=== PATIENT | male | born 1980 | race Caucasian/White ===

== ENCOUNTER 2021-12-02 08:38 | Outpatient (CLI) | payer BC, SELFPAY ==
[2021-12-02 14:17] LABS: Albumin* 4.7 g/dL (3.3-5.0); Chloride* 99 mmol/L (96-114)
[2021-12-02 14:18] LABS: Potassium* 5.2 mmol/L (3.6-5.1)
[2021-12-02 14:19] LABS: Cholesterol* 157 mg/dL (90-199)
[2021-12-02 14:20] LABS: Alanine Aminotransferase* 59 U/L (4-50); Alkaline Phosphatase* 70 U/L (40-150); Aspartate Amino Transferase* 36 U/L (12-35); Bilirubin Total* 1.5 mg/dL (0.1-1.5); Blood Urea Nitrogen* 20 mg/dL (5-24); Calcium* 9.4 mg/dL (8.4-10.6); Carbon Dioxide* 32 mmol/L (20-32); Creatinine* 1.1 mg/dL (0.5-1.5); Estimated Glomerular Filt Rate 85 ml/min; Glucose* 99 mg/dL (60-115); Total Protein* 7.3 g/dL (6.0-8.3); Triglycerides* 164 mg/dL (40-149)
[2021-12-02 14:21] LABS: HDL Cholesterol* 41 mg/dL (>=40); LDL Cholesterol Calculated 83 mg/dL (<100)
[2021-12-02 14:45] LABS: Sodium* 138 mmol/L (135-149)
== END 2021-12-02 08:39 | disposition home or self-care (01) ==
PROVIDERS: PCP Physician Assistant Medical; Visit Provider Physician Assistant Medical
DX: E78.5 Hyperlipidemia, unspecified (principal); I10 Essential (primary) hypertension; I63.9 Cerebral infarction, unspecified
CPT/HCPCS: 80053; 80061; 84443

== ENCOUNTER 2022-01-08 10:35 | Outpatient (CLI) | payer BC, SELFPAY ==
[2022-01-08 10:53] LABS: Basophils Absolute Auto 0.04 K/uL (0.00-0.30); Basophils Percent Auto 0.6 % (0.0-3.0); Eosinophils Absolute Auto 0.16 K/uL (0.00-0.50); Eosinophils Percent Auto 2.2 % (0.0-7.0); Hematocrit 45.4 % (37.0-53.0); Hemoglobin* 14.8 gm/dL (13.5-17.5); Lymphocytes Absolute Auto 2.74 K/uL (0.90-2.90); Mean Corpuscular HGB Conc 33 gm/dL (32-36); Mean Corpuscular Hemoglobin 30 pg (26-34); Mean Corpuscular Volume 90 fL (80-100); Monocytes Percent Auto 12.7 % (0.0-11.0); Neutrophils Absolute Auto 3.36 K/uL (1.7-7.0); Neutrophils Percent Auto 46.5 % (42.0-72.0); Platelet Count* 269 K/uL (140-440); Red Blood Count 5.02 m/uL (4.30-5.90); White Blood Count* 7.22 K/uL (4.50-11.00)
[2022-01-08 10:55] LABS: Slide Review Reflex No
[2022-01-08 13:57] LABS: Albumin* 4.9 g/dL (3.3-5.0)
[2022-01-08 13:58] LABS: Chloride* 98 mmol/L (96-114); Potassium* 4.4 mmol/L (3.6-5.1); Sodium* 137 mmol/L (135-149)
[2022-01-08 14:00] LABS: Bilirubin Total* 1.5 mg/dL (0.1-1.5); Carbon Dioxide* 30 mmol/L (20-32); Creatinine* 0.9 mg/dL (0.5-1.5); Estimated Glomerular Filt Rate 109 ml/min
[2022-01-08 14:01] LABS: Alanine Aminotransferase* 49 U/L (4-50); Alkaline Phosphatase* 66 U/L (40-150); Aspartate Amino Transferase* 29 U/L (12-35); Blood Urea Nitrogen* 16 mg/dL (5-24); Calcium* 9.8 mg/dL (8.4-10.6); Glucose* 111 mg/dL (60-115); Total Protein* 7.6 g/dL (6.0-8.3)
== END 2022-01-08 10:36 | disposition home or self-care (01) ==
PROVIDERS: PCP Physician Assistant Medical; Visit Provider Physician Assistant Medical
DX: R10.9 Unspecified abdominal pain (principal); I10 Essential (primary) hypertension; E78.5 Hyperlipidemia, unspecified
CPT/HCPCS: 80053; 85025

== ENCOUNTER 2022-01-16 15:48 | Outpatient (CLI) | payer BC, SELFPAY ==
--- NOTE | 2022-01-16 16:00 | CRLHL7_ITS ---
For Patients: As a result of the Century Cures Act, medical imaging exams and procedure reports are released immediately into your electronic medical record. You may view this report before your referring provider. If you have questions, please contact your health care provider. Indication: RLQ PAIN Technique: Postcontrast CT abdomen and pelvis. 117 cc Isovue 370 intravenous contrast. Please note that all CT scans at this facility use dose modulation, iterative reconstruction, and/or weight-based dosing when appropriate to reduce radiation dose to as low as reasonably achievable. Comparison: None Findings: Lung bases are clear. Normal liver. Gallbladder normal. Normal pancreas, spleen, adrenal glands, kidneys and ureters. No bowel obstruction, free air, free fluid or adenopathy. Mild vascular calcifications within the distal aorta and common iliac arteries. No aneurysm. Normal prostate and bladder. No pelvic soft tissue mass. No bowel obstruction, free air, free fluid or abscess. Normal appendix. Normal appearance of the terminal ileum without evidence of inflammatory bowel disease. Mild fecalization of the small bowel noted. Degenerative disc disease lower lumbar spine. No fracture. Impression: No acute inflammatory changes. Normal appendix. 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 No mechanical obstruction. Please note that all CT scans at this facility use dose modulation, iterative reconstruction, and/or weight-based dosing when appropriate to reduce radiation dose to as low as reasonably achievable. Dictated by Cali Knight MD @ 01/19/2022 9:10:43 AM (Electronically Signed)
== END 2022-01-16 15:49 | disposition home or self-care (01) ==
LOC: CT 15:49
PROVIDERS: PCP Physician Assistant Medical; Visit Provider Physician Assistant Medical
DX: R10.31 Right lower quadrant pain (principal)
CPT/HCPCS: 74177; Q9967

== ENCOUNTER 2022-07-13 13:08 | Outpatient (CLI) | payer BC, SELFPAY | END 2022-07-13 13:09 | disposition home or self-care (01) | LOC: NFLDREF 07-15 11:45 | PROVIDERS: PCP Physician Assistant Medical; Referring Provider Physician Assistant Medical; Visit Provider Family Medicine | DX: R35.0 Frequency of micturition (principal); R39.9 Unspecified symptoms and signs involving the genitourinary system; R10.2 Pelvic and perineal pain; R39.11 Hesitancy of micturition | CPT/HCPCS: 87086 ==

== ENCOUNTER 2022-12-30 08:46 | Outpatient (CLI) | payer BC, SELFPAY | END 2022-12-30 08:47 | disposition home or self-care (01) | PROVIDERS: PCP Physician Assistant Medical; Visit Provider Physician Assistant Medical | DX: I10 Essential (primary) hypertension (principal); E78.5 Hyperlipidemia, unspecified; I63.9 Cerebral infarction, unspecified | CPT/HCPCS: 80053; 80061 ==

== ENCOUNTER 2024-02-16 07:49 | Outpatient (CLI) | payer OTHER, SELFPAY | END 2024-02-16 07:50 | disposition home or self-care (01) | LOC: NFLDREF 02-19 12:12 | PROVIDERS: PCP Physician Assistant Medical; Referring Provider Physician Assistant Medical; Visit Provider Physician Assistant Medical | DX: Z00.00 Encounter for general adult medical examination without abnormal findings (principal); I10 Essential (primary) hypertension; E78.5 Hyperlipidemia, unspecified; I63.9 Cerebral infarction, unspecified | CPT/HCPCS: 80053; 80061; 84443 ==

== ENCOUNTER 2024-03-27 06:24 | Outpatient (CLI) | payer OTHER, SELFPAY ==
--- NOTE | 2024-03-27 08:11 | W.ANESCHARGE ---
Anesthesia Charges Start Date/Time Anesthesia Start Date: 03/27/24 Anesthesia Start Time: 07:30 Stop Date/Time Anesthesia Stop Date: 03/27/24 Anesthesia Stop Time: 08:05
== END 2024-03-27 06:25 | disposition home or self-care (01) ==
LOC: OP CLINIC 06:25
PROVIDERS: PCP Physician Assistant Medical; Visit Provider Surgery
DX: Z12.11 Encounter for screening for malignant neoplasm of colon (principal); D12.5 Benign neoplasm of sigmoid colon
CPT/HCPCS: 00811; 45385; 88305; J2405; J2704

== ENCOUNTER 2025-02-15 09:27 | Outpatient (CLI) | payer OTHER, SELFPAY | END 2025-02-15 09:28 | disposition home or self-care (01) | LOC: NFLDREF 02-21 01:50 | PROVIDERS: PCP Physician Assistant Medical; Referring Provider Physician Assistant Medical; Visit Provider Physician Assistant Medical | DX: I10 Essential (primary) hypertension (principal); E78.2 Mixed hyperlipidemia; Z00.00 Encounter for general adult medical examination without abnormal findings | CPT/HCPCS: 80053; 80061; 84443; G0103 ==